=== PATIENT | female | born 1965 | race Two or more races ===

== ENCOUNTER 2017-08-30 20:15 | Emergency (ER) | payer OTHER ==
[~2017-08-30] VITALS: Ht 157.5 cm; Wt 72.6 kg
[~2017-08-30 20:15] MED LIST: DEPAKOTE ER500 MG PO
[2017-08-31] MEDS ORDERED: KETO10TA2 PO (03:12)
[2017-08-31] MEDS ORDERED: CYCLOBENZAPRINE10 MG PO (03:12)
[2017-08-31] MEDS ORDERED: ORPHENADRINE C100 MG PO (03:12)
== END 2017-08-31 03:29 | disposition home or self-care (01) ==
LOC: ER 20:15
DX: S33.5XXA Sprain of ligaments of lumbar spine, initial encounter (principal); X50.3XXA Overexertion from repetitive movements, initial encounter; Y93.89 Activity, other specified; Y92.89 Other specified places as the place of occurrence of the external cause; Y99.8 Other external cause status

== ENCOUNTER → 2017-11-16 | Day surgery (SDC) | payer OTHER ==
[~2017-11-16] MED LIST changes: +CYCLOBENZAPRINE10 MG PO; +KETO10TA2 PO; +ORPHENADRINE C100 MG PO
== END | disposition home or self-care (01) ==
LOC: ADM 11-11 13:15 → AMB-ENDOS 07:38
DX: D12.0 Benign neoplasm of cecum (principal); D12.5 Benign neoplasm of sigmoid colon; D12.8 Benign neoplasm of rectum; K64.8 Other hemorrhoids